=== PATIENT | female | born 1945 | race Caucasian/White ===

== ENCOUNTER → 2018-12-03 | Outpatient (CLI) | payer MEDICARE ==
[~2018-12-03] MED LIST: ALBU90OI INH; ASCO500 PO; ASTAXANTHIN4 MG PO; CHOL10002; FISH OIL 1,0001 EAC1 PO; FISH1000 PO; FLUT.05NI; Garlic1000 MG PO; HYDCHL25 PO; LOVA20 PO; LOVA40 PO; MECL25 PO; MULVITA PO; Multiple Vitam1 EACH PO; TOCO400 PO; UBID100 PO; Vitamin C100 M1
[2018-12-05 15:06] LABS: HPV 16 Negative (Negative); HPV 18 Negative (Negative); HPV OTHER HR TYPES Negative (Negative)
== END | disposition home or self-care (01) ==
LOC: LAB 19:08 → LAB SHORT 19:08
PROVIDERS: Nurse Practitioner Women's Health
DX: Z12.4 Encounter for screening for malignant neoplasm of cervix (principal); Z91.89 Other specified personal risk factors, not elsewhere classified
CPT/HCPCS: 87624; G0123

== ENCOUNTER 2019-05-07 05:50 | Emergency (ER) | payer MEDICARE ==
[~2019-05-07] VITALS: Ht 160 cm; Wt 86.2 kg
[2019-05-07 06:39] LABS: BASOPHILS ABSOLUTE AUTO 0.08 K/mm3 (0.00-0.23); BASOPHILS PERCENT AUTO 1 % (0-2); EOSINOPHILS ABSOLUTE AUTO 0.13 K/mm3 (0.00-0.68); EOSINOPHILS PERCENT AUTO 2 % (0-6); Hemoglobin 15.9 g/dL (11.5-16.0); IMMATURE GRAN ABSOLUTE AUTO 0.02 K/mm3 (0.00-0.10); IMMATURE GRAN PERCENT AUTO 0 % (0-1); LYMPHOCYTES ABSOLUTE AUTO 3.67 K/mm3 (0.84-5.20); LYMPHOCYTES PERCENT AUTO 48 % (21-46); MONOCYTES ABSOLUTE AUTO 0.65 K/mm3 (0.16-1.47); MONOCYTES PERCENT AUTO 9 % (4-13); Mean Corpuscular HGB 29.9 pg (26.0-34.0); Mean Corpuscular HGB Conc 33.8 g/dL (31.5-36.5); Mean Corpuscular Volume 89 fL (80-100); Mean Platelet Volume 10.1 fL (9.1-12.4); NEUTROPHILS ABSOLUTE AUTO 3.03 K/mm3 (1.96-9.15); NEUTROPHILS PERCENT AUTO 40 % (41-73); Platelet Count 215 K/mm3 (150-400); RDW Coefficient Variation 13.2 % (11.7-14.2); Red Blood Cell Count 5.31 M/mm3 (3.80-5.20); White Blood Cell Count 7.58 K/mm3 (4.00-11.30)
[2019-05-07 06:53] LABS: Alanine Aminotransfer (ALT/SGP 38 U/L (12-78); Alk Phos 75 U/L (50-136); Anion Gap 7 mmol/L (6-16); Aspartate Aminotrans (AST/SGOT 24 U/L (12-37); Bilirubin, Total 0.7 mg/dL (0.1-1.0); Blood Urea Nitrogen 14 mg/dL (8-24); Bun/Creatinine Ratio 20.7 (12.0-20.0); CO2, Blood 25 mmol/L (21-32); Calcium, Blood 9.2 mg/dL (8.5-10.1); Chloride, Blood 109 mmol/L (98-108); Creatinine, Blood 0.68 mg/dL (0.40-1.00); Globulin, Blood 4.2 g/dL (2.2-4.0); Glomerular Filtration Rate >60 (60-); Glucose, Blood 109 mg/dL (70-99); Potassium, Blood 3.8 mmol/L (3.5-5.5); Sodium, Blood 141 mmol/L (136-145); Total Protein, Blood 8.2 g/dL (6.4-8.2); Troponin I <0.015 ng/mL (0.000-0.040)
== END 2019-05-07 08:42 | disposition home or self-care (01) ==
LOC: ER 05:50
PROVIDERS: Emergency Medicine
DX: R07.9 Chest pain, unspecified (principal); I10 Essential (primary) hypertension; Z85.828 Personal history of other malignant neoplasm of skin; Z87.01 Personal history of pneumonia (recurrent); Z88.1 Allergy status to other antibiotic agents; Z88.2 Allergy status to sulfonamides; Z88.8 Allergy status to other drugs, medicaments and biological substances
CPT/HCPCS: 36415; 71046; 80053; 83690; 83880; 84484; 85025; 93005; 93010; 96361; 96374; 99285-25; J2405; J7030

== ENCOUNTER 2021-09-10 04:32 | Emergency (ER) | payer MEDICARE ==
[~2021-09-10] VITALS: Ht 160 cm; Wt 72.6 kg
[2021-09-10 05:45] LABS: BASOPHILS ABSOLUTE AUTO 0.09 K/mm3 (0.00-0.23); BASOPHILS PERCENT AUTO 1 % (0-2); EOSINOPHILS ABSOLUTE AUTO 0.11 K/mm3 (0.00-0.68); EOSINOPHILS PERCENT AUTO 2 % (0-6); Hematocrit 47.2 % (33.0-51.0); Hemoglobin 15.8 g/dL (11.5-16.0); IMMATURE GRAN ABSOLUTE AUTO 0.02 K/mm3 (0.00-0.10); IMMATURE GRAN PERCENT AUTO 0 % (0-1); LYMPHOCYTES ABSOLUTE AUTO 2.88 K/mm3 (0.84-5.20); LYMPHOCYTES PERCENT AUTO 43 % (21-46); MONOCYTES PERCENT AUTO 9 % (4-13); Mean Corpuscular HGB Conc 33.5 g/dL (31.5-36.5); Mean Corpuscular Volume 87 fL (80-100); Mean Platelet Volume 10.2 fL (9.1-12.4); NEUTROPHILS ABSOLUTE AUTO 3.06 K/mm3 (1.96-9.15); NEUTROPHILS PERCENT AUTO 45 % (41-73); Platelet Count 193 K/mm3 (150-400); RDW Coefficient Variation 13.3 % (11.7-14.2); RDW Standard Deviation 41.8 fL (35.1-46.3); Red Blood Cell Count 5.44 M/mm3 (3.80-5.20); White Blood Cell Count 6.76 K/mm3 (4.00-11.30)
[2021-09-10 06:00] LABS: Alanine Aminotransfer (ALT/SGP 41 U/L (12-78); Albumin, Blood 3.9 g/dL (3.4-5.0); Alk Phos 57 U/L (50-136); Anion Gap 6 mmol/L (6-16); Aspartate Aminotrans (AST/SGOT 29 U/L (12-37); Bilirubin, Total 0.6 mg/dL (0.1-1.0); Blood Urea Nitrogen 14 mg/dL (8-24); Bun/Creatinine Ratio 24.3 (12.0-20.0); CO2, Blood 26 mmol/L (21-32); Calcium, Blood 9.3 mg/dL (8.5-10.1); Chloride, Blood 109 mmol/L (98-108); Creatinine, Blood 0.58 mg/dL (0.40-1.00); Globulin, Blood 3.8 g/dL (2.2-4.0); Glomerular Filtration Rate >60 (60-); Glucose, Blood 118 mg/dL (70-99); Potassium, Blood 3.2 mmol/L (3.5-5.5); Sodium, Blood 141 mmol/L (136-145); Total Protein, Blood 7.7 g/dL (6.4-8.2)
== END 2021-09-10 06:03 | disposition home or self-care (01) ==
LOC: ER 04:32
PROVIDERS: Emergency Medicine
DX: I10 Essential (primary) hypertension (principal); E78.00 Pure hypercholesterolemia, unspecified; Z88.2 Allergy status to sulfonamides; Z88.8 Allergy status to other drugs, medicaments and biological substances
CPT/HCPCS: 80053; 84484; 85025; 93005; 93010; 99283-25; A9270

== ENCOUNTER → 2022-10-15 | Outpatient (CLI) | payer MEDICARE ==
[2022-10-15 10:19] LABS: Stool Occult Bld Immuno 1 Positive (NEGATIVE)
== END | disposition home or self-care (01) ==
LOC: LAB SHORT 06:50
PROVIDERS: Family Medicine
DX: Z12.11 Encounter for screening for malignant neoplasm of colon (principal)
CPT/HCPCS: G0328

== ENCOUNTER 2023-06-08 01:34 | Emergency (ER) | payer MEDICARE ==
[~2023-06-08] VITALS: Ht 162.6 cm; Wt 79.4 kg
[2023-06-08] MEDS ORDERED: HYDCHL25 PO (01:56)
[2023-06-08] MEDS ORDERED: LOSA50 PO (01:57)
[2023-06-08] MEDS ORDERED: KLONOPIN0.5 M9 PO (01:59)
[2023-06-08 02:23] LABS: Albumin, Blood 2.8 g/dL (3.4-5.0); Albumin/Globulin Ratio 0.9 (0.8-1.8); Bilirubin, Total 0.3 mg/dL (0.1-1.0); Bun/Creatinine Ratio 37.5 (12.0-20.0); Calcium, Blood 6.7 mg/dL (8.5-10.1); Creatinine, Blood 0.51 mg/dL (0.40-1.00); Globulin, Blood 3.1 g/dL (2.2-4.0); Magnesium, Blood 1.7 mg/dL (1.6-2.4); Potassium, Blood 2.9 mmol/L (3.5-5.5); Total Protein, Blood 5.9 g/dL (6.4-8.2)
[2023-06-08 02:24] LABS: BASOPHILS ABSOLUTE AUTO 0.11 K/mm3 (0.00-0.23); BASOPHILS PERCENT AUTO 1 % (0-2); EOSINOPHILS ABSOLUTE AUTO 0.24 K/mm3 (0.00-0.68); EOSINOPHILS PERCENT AUTO 3 % (0-6); Hematocrit 45.3 % (33.0-51.0); Hemoglobin 15.6 g/dL (11.5-16.0); IMMATURE GRAN ABSOLUTE AUTO 0.01 K/mm3 (0.00-0.10); IMMATURE GRAN PERCENT AUTO 0 % (0-1); LYMPHOCYTES ABSOLUTE AUTO 3.99 K/mm3 (0.84-5.20); LYMPHOCYTES PERCENT AUTO 51 % (21-46); MONOCYTES ABSOLUTE AUTO 0.68 K/mm3 (0.16-1.47); MONOCYTES PERCENT AUTO 9 % (4-13); Mean Corpuscular HGB 29.8 pg (26.0-34.0); Mean Corpuscular HGB Conc 34.4 g/dL (31.5-36.5); Mean Corpuscular Volume 87 fL (80-100); Mean Platelet Volume 9.4 fL (9.1-12.4); NEUTROPHILS ABSOLUTE AUTO 2.76 K/mm3 (1.96-9.15); NEUTROPHILS PERCENT AUTO 36 % (41-73); Platelet Count 196 K/mm3 (150-400); RDW Coefficient Variation 13.2 % (11.7-14.2); RDW Standard Deviation 41.5 fL (35.1-46.3); Red Blood Cell Count 5.23 M/mm3 (3.80-5.20); White Blood Cell Count 7.79 K/mm3 (4.00-11.30)
[2023-06-08 03:00] VITALS: BP 142/70
== END 2023-06-08 03:21 | disposition home or self-care (01) ==
LOC: ER 01:34
PROVIDERS: Emergency Medicine
DX: R00.2 Palpitations (principal); I10 Essential (primary) hypertension; Z88.2 Allergy status to sulfonamides; Z88.1 Allergy status to other antibiotic agents; Z88.8 Allergy status to other drugs, medicaments and biological substances
CPT/HCPCS: 71045; 80053; 83735; 83880; 84484; 85025; 93005; 93010; 99285-25; A9270

== ENCOUNTER 2023-08-06 21:18 | Observation (INO) | payer MEDICARE ==
[~2023-08-06] VITALS: Ht 162.6 cm; Wt 76.7 kg
[~2023-08-06 21:18] MED LIST changes: +KLONOPIN0.5 M9 PO; +LOSA50 PO
[2023-08-06 22:06] LABS: Hematocrit 44.1 % (33.0-51.0); Hemoglobin 15.3 g/dL (11.5-16.0); Mean Corpuscular HGB Conc 34.7 g/dL (31.5-36.5); Mean Corpuscular Volume 87 fL (80-100); Mean Platelet Volume 9.2 fL (9.1-12.4); Platelet Count 258 K/mm3 (150-400); RDW Coefficient Variation 13.6 % (11.7-14.2); RDW Standard Deviation 43.7 fL (35.1-46.3); White Blood Cell Count 11.34 K/mm3 (4.00-11.30)
[2023-08-06 22:22] LABS: Albumin/Globulin Ratio 0.9 (0.8-1.8); Bilirubin, Total 0.4 mg/dL (0.1-1.0); Bun/Creatinine Ratio 43.2 (12.0-20.0); Calcium, Blood 10.1 mg/dL (8.5-10.1); Creatinine, Blood 0.58 mg/dL (0.40-1.00); Globulin, Blood 4.4 g/dL (2.2-4.0); Potassium, Blood 3.7 mmol/L (3.5-5.5); Total Protein, Blood 8.4 g/dL (6.4-8.2)
[2023-08-06] MEDS ORDERED: K-Dur10 MEQ PO (22:26)
[2023-08-06] MEDS ORDERED: LORAZEPAM0.5 MG PO (22:27)
[2023-08-06 23:01] LABS: BASOPHILS ABSOLUTE MAN 0.11 K/mm3 (0.00-0.23); BASOPHILS PERCENT MAN 1 % (0-2); EOSINOPHILS ABSOLUTE MAN 0.34 K/mm3 (0.00-0.68); EOSINOPHILS PERCENT MAN 3 % (0-6); LYMPHOCYTES ABSOLUTE MAN 6.12 K/mm3 (0.84-5.20); LYMPHOCYTES PERCENT MAN 54 % (21-46); MONOCYTES ABSOLUTE MAN 0.68 K/mm3 (0.16-1.47); MONOCYTES PERCENT MAN 6 % (4-13); MYELOCYTE ABSOLUTE MAN 0.11 K/mm3 (0.00-0.00); MYELOCYTE PERCENT MAN 1 % (0-0); NEUTROPHILS ABSOLUTE MAN 3.96 K/mm3 (1.96-9.15); SEG NEUTROPHILS PERCENT MAN 35 % (41-73); TOTAL CELLS COUNTED 100
[2023-08-07] MEDS ORDERED: FLU VACC QS2023-24(6MOS UP)/PF 60 MCG/0.5 ML SYRINGE IM ONE (03:55)
[2023-08-07 05:19] VITALS: BP 136/62
[2023-08-07 06:58] LABS: BASOPHILS PERCENT AUTO 1 % (0-2); EOSINOPHILS ABSOLUTE AUTO 0.19 K/mm3 (0.00-0.68); EOSINOPHILS PERCENT AUTO 3 % (0-6); Hematocrit 41.5 % (33.0-51.0); Hemoglobin 14.2 g/dL (11.5-16.0); IMMATURE GRAN ABSOLUTE AUTO 0.03 K/mm3 (0.00-0.10); IMMATURE GRAN PERCENT AUTO 0 % (0-1); LYMPHOCYTES ABSOLUTE AUTO 2.75 K/mm3 (0.84-5.20); LYMPHOCYTES PERCENT AUTO 38 % (21-46); MONOCYTES ABSOLUTE AUTO 0.76 K/mm3 (0.16-1.47); MONOCYTES PERCENT AUTO 10 % (4-13); Mean Corpuscular HGB 30.1 pg (26.0-34.0); Mean Corpuscular HGB Conc 34.2 g/dL (31.5-36.5); Mean Corpuscular Volume 88 fL (80-100); Mean Platelet Volume 9.3 fL (9.1-12.4); NEUTROPHILS ABSOLUTE AUTO 3.51 K/mm3 (1.96-9.15); NEUTROPHILS PERCENT AUTO 48 % (41-73); Platelet Count 243 K/mm3 (150-400); RDW Coefficient Variation 13.9 % (11.7-14.2); RDW Standard Deviation 44.9 fL (35.1-46.3); Red Blood Cell Count 4.71 M/mm3 (3.80-5.20); White Blood Cell Count 7.34 K/mm3 (4.00-11.30)
[2023-08-07 07:46] VITALS: BP 138/66
--- NOTE | 2023-08-07 08:11 | NUR ---
SHIFT SUMMARY PT ARRIVED TO ROOM 308 FROM ER AT 0525 VIA WHEELCHAIR. PT TRANSFERED INDEPENDENTLY TO HOSPITAL BED. A&OX4, VSS ON RA. NSR AT 71 PER TELEMETRY. PT DENIES ANY PAIN. SAID HER THROAT IS SORE D/T HAVING A SINUS INFECTION, GAVE HER HOT TEA WITH HONEY. NO C/O CHEST PAIN OR PRESSURE. ORIENTED PT TO ROOM AND CALL LIGHT. WILL BE INDEPENDENT IN ROOM/BR. BED IN LOWEST POSITION, CALL LIGHT WITHIN REACH. GAVE PT A MENU SO SHE COULD ORDER FOOD.
[2023-08-07 08:37] LABS: Albumin, Blood 3.5 g/dL (3.4-5.0); Albumin/Globulin Ratio 0.9 (0.8-1.8); Bilirubin, Total 0.6 mg/dL (0.1-1.0); Calcium, Blood 9.4 mg/dL (8.5-10.1); Creatinine, Blood 0.58 mg/dL (0.40-1.00); Globulin, Blood 3.9 g/dL (2.2-4.0); Potassium, Blood 3.9 mmol/L (3.5-5.5); Total Protein, Blood 7.4 g/dL (6.4-8.2)
[2023-08-07] MEDS ORDERED: Losartan Potassium 50 MG Tab PO SCH (09:00)
[2023-08-07] MEDS ORDERED: Enoxaparin 40 MG/0.4 ML SYR SC SCH (09:00)
[2023-08-07] MEDS ORDERED: Metoprolol Tartrate 25 MG Tab PO SCH (10:00)
--- NOTE | 2023-08-07 10:24 | NUR ---
MD CALL MS MEZA DOES NOT WANT TO TAKE METOPROLOL DOSE NOW SHE SAID SHE GETS DIZZY WITH LOSARTIN AND IS CONCERNED THAT SHE WILL GET DIZZY. DR LEACH CALLED AND SHE SAID THAT'S FINE NOT TO TAKE THIS AM DOSE. DISCUSSED ANTIBIOTICS THAT SHE TAKES FOR SINUS INFECTION AND THAT SHE TAKES LOSARTIN AT NIGHT, NO CHANGES TO MEDICATIONS AT THIS TIME THERE IS AN EXPECTED DISHARGE AFTER ECHO WITH MOE ON TODAY.
[2023-08-07 12:58] VITALS: BP 139/73
--- NOTE | 2023-08-07 13:06 | NUR ---
RN NOTE MS MEZA C/O FEELING OF POUNDING HEART BEAT, TINGLING TO HER FACE AND SCALP, DIZZY/LIGHTHEADEDNESS. SLIGHT NAUSEA. 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 BP 139/73. PERRL 5MM. SHE SAID SYMPTOMS ARE RESOLVING NOW, AFTER ABOUT [address] LEACH CALLED AND NOTIFIED. TELEPHONE ORDER FOR 12.5MG METOPROLOL SUCCINATE PO X 1 DOSE NOW, TO DISCONTINUE SCHEDULED METOPROLOL DOSE. READ BACK DONE AND ORDERES ENTERED INTO [employer].
[2023-08-07] MEDS ORDERED: Metoprolol Succinate 25 MG TABCR PO ONE (13:10)
--- NOTE | 2023-08-07 15:03 | NUR ---
SHIFT SUMMARY MS MEZA IS ALERT, ORIENTATED X 4. UP INDEPENDENTLY TO THE BATHROOM. SHE VERBALISED UNDERSTANDING TO CALL FOR ASSISTANCE IF SHE HAS ANY DIZZYNESS EPISODES. HAD AN EPISODE OF DIZZYNESS/LIGHTHEADEDNESS WITH MILD NAUSEA, AND FELT LIKE HER HEART WAS POUNDING THAT LASTED 5-15 MINUTES WITH SYMPTOMS NOW FULLY RESOLVED. NO ABNORMALITIES ON TELEMETRY DURING THIS PERIOD. ZIOPATCH HAS BEEN PLACED. AWAITING ECHOCARDIOGRAM. DAUGHTER AT BEDSIDE. NO C/O PAIN. BED LOW, CALL LIGHT IN REACH.
[2023-08-07 16:03] VITALS: BP 142/63
--- NOTE | 2023-08-07 16:29 | NUR ---
RN NOTE ECHO COMPLETED. DR LEACH NOTIFIED.
[2023-08-07] MEDS ORDERED: METO25ER PO (17:46)
--- NOTE | 2023-08-07 17:59 | NUR ---
DISCHARGED [facility] WITH HER DAUGHTER AT 1757HRS. AMBULATED OUT FROM MEDICAL UNIT, DECLINED WHEELCHAIR. PT VERBALISED UNDERSTANDING OF WRITTEN AND VERBAL DISCHARGE INSTRUCTIONS. SHE DENIED ANY PAIN OR CONCERNS PRIOR TO DISCHARGE.
[2023-08-07] MEDS ORDERED: Metoprolol Succinate 25 MG TABCR PO SCH (18:00)
== END 2023-08-07 17:59 | disposition home or self-care (01) ==
LOC: ER 21:18 → MEDS 21:19
PROVIDERS: Emergency Medicine; Family Medicine; ADMIT Internal Medicine
DX: R79.89 Other specified abnormal findings of blood chemistry (principal); I10 Essential (primary) hypertension; E78.00 Pure hypercholesterolemia, unspecified; Z79.899 Other long term (current) drug therapy; Z88.2 Allergy status to sulfonamides; Z88.8 Allergy status to other drugs, medicaments and biological substances
CPT/HCPCS: 36415; 71045; 80053; 84484; 85025; 85379; 93005; 93010; 93246; 93306; 96372; 99285-25; A9270; G0378; J1650

== ENCOUNTER 2023-10-29 06:07 | Day surgery (SDC) | payer MEDICARE ==
[~2023-10-29] VITALS: Ht 162.6 cm; Wt 76.0 kg
[2023-10-29] VITALS (11 sets, daily range): BP systolic 116–159; BP diastolic 56–80
[~2023-10-29 06:07] MED LIST changes: +K-Dur10 MEQ PO; +LORAZEPAM0.5 MG PO; +METO25ER PO
[2023-10-29] MEDS ORDERED: ASPIR 8181 M1 PO (06:20)
[2023-10-29] MEDS ORDERED: NS 1,000 ML IV ONE (06:38)
[2023-10-29] MEDS ORDERED: Benzocaine Oral Spray 0.5ML UD ONE (07:05)
--- NOTE | 2023-10-29 07:32 | NUR ---
ASSUMED CARE FROM ANESTHESIA. PT AWAKE AND VERBALIZING WELL.
--- NOTE | 2023-10-29 08:15 | NUR ---
PT AMB IN RM /S DIFFICULTY. PT AND DAUGHTER VERBALIZED UNDERSTANDING OF WRITTEN AND VERBAL D/C INST. IV REMOVED. PT TAKEN OUT OF THE HRT CENTER VIA W/C.
[2023-10-29] MEDS ORDERED: Propofol 10mg/ml 20 ml Vial (Procedural) IV ONE (10:54)
== END 2023-10-29 23:19 | disposition home or self-care (01) ==
LOC: MHTC 06:07
DX: I08.0 Rheumatic disorders of both mitral and aortic valves (principal); I11.0 Hypertensive heart disease with heart failure; I50.30 Unspecified diastolic (congestive) heart failure; I47.10 Supraventricular tachycardia, unspecified; Z88.1 Allergy status to other antibiotic agents; Z88.8 Allergy status to other drugs, medicaments and biological substances; Z79.899 Other long term (current) drug therapy
CPT/HCPCS: 93312; 93325; A9270; J2704; J7030

== ENCOUNTER → 2024-06-04 | Outpatient (CLI) | payer MEDICARE ==
[~2024-06-04] MED LIST changes: +ASPIR 8181 M1 PO
[2024-06-04 14:59] LABS: Stool Occult Bld Immuno 1 Negative (NEGATIVE)
== END | disposition home or self-care (01) ==
LOC: LAB 09:46 → LAB SHORT 09:46 → LAB FUT 06-04 06:35
PROVIDERS: Family Medicine
DX: Z12.11 Encounter for screening for malignant neoplasm of colon (principal); R79.9 Abnormal finding of blood chemistry, unspecified; I10 Essential (primary) hypertension; Z72.89 Other problems related to lifestyle
CPT/HCPCS: G0328